=== PATIENT | male | born 2000 | race African-American/Black ===

== ENCOUNTER 2020-11-01 20:36 | Emergency (ER) | payer OTHER ==
[~2020-11-01 20:36] MED LIST: PROTONIX 40MG T40 MG PO; ZANTAC150 MG PO; ZOFRAN8 MG PO
[2020-11-02] MEDS ORDERED: CYCLOBENZAPRINE5 MG PO (00:15)
[2020-11-02] MEDS ORDERED: MOTRIN600 MG PO (00:15)
== END 2020-11-02 00:20 | disposition home or self-care (01) ==
LOC: FER 20:36
DX: M43.6 Torticollis (principal); F17.210 Nicotine dependence, cigarettes, uncomplicated
CPT/HCPCS: 72040; 72072; J7512

== ENCOUNTER 2021-01-02 13:11 | Emergency (ER) | payer OTHER ==
[~2021-01-02 13:11] MED LIST changes: +CYCLOBENZAPRINE5 MG PO; +MOTRIN600 MG PO
[2021-01-02] MEDS ORDERED: NORCO 5-325 TA1 EACH PO (18:26)
[2021-01-02] MEDS ORDERED: ACULAR5 M1 OS (18:26)
[2021-01-02] MEDS ORDERED: GARAMYCIN OPTH D5 ML OS (18:26)
== END 2021-01-02 18:44 | disposition home or self-care (01) ==
LOC: FER 13:11
DX: H10.022 Other mucopurulent conjunctivitis, left eye (principal); F17.210 Nicotine dependence, cigarettes, uncomplicated
CPT/HCPCS: 99283

== ENCOUNTER 2021-06-18 12:16 | Emergency (ER) | payer OTHER ==
[~2021-06-18 12:16] MED LIST changes: +ACULAR5 M1 OS; +GARAMYCIN OPTH D5 ML OS; +NORCO 5-325 TA1 EACH PO
[2021-06-18 13:14] LABS: BASOPHIL 0.3 % (0-2); EOSINOPHIL 0.5 % (0-5); HCT 45.3 % (42.0-52.0); HGB 15.1 g/dl (13.2-18.0); LYMPHOCYTE 28.2 % (15-48); MCH 28.7 pg (25.0-31.0); MCHC 33.3 g/dL (32.0-36.0); MONOCYTE 8.7 % (0-12); NRBC 0; PLT 289 K/uL (150-400); RBC 5.27 M/uL (4.70-6.00); RDW 13.4 % (11.5-14.0); WBC 7.6 K/uL (4.0-10.5)
[2021-06-18 13:16] LABS: BILIRUBIN NEGATIVE (NEGATIVE); BLOOD NEGATIVE Ery/uL (NEGATIVE); CLARITY CLEAR (CLEAR); COLOR YELLOW (YELLOW); GLUCOSE (U) NORMAL (NORMAL); LEUKOCYTES TRACE Leu/uL (NEGATIVE); NITRITE NEGATIVE (NEGATIVE); PROTEIN NEGATIVE (NEGATIVE); SPECIFIC GRAVITY <=1.005 (1.001-1.030); UROBILINOGEN 0.2 mg/dL (0.2-1.0)
[2021-06-18 13:36] LABS: BACTERIA 2+
[2021-06-18 13:46] LABS: ALBUMIN 4.2 g/dL (3.4-5.0); BILIRUBIN - TOTAL 1.4 mg/dL (0.2-1.0); BUN/CREAT RATIO (CALC) 7.3 RATIO; CREATININE 1.09 mg/dL (0.67-1.17); GLOBULIN (CALCULATION) 3.7 g/dL; POTASSIUM 3.6 mmol/L (3.5-5.1); TOTAL PROTEIN 7.9 g/dL (6.4-8.2)
== END 2021-06-18 14:54 | disposition left against medical advice (07) ==
LOC: FER 12:16
PROVIDERS: Internal Medicine
DX: Z53.21 Procedure and treatment not carried out due to patient leaving prior to being seen by health care provider (principal)
CPT/HCPCS: 36415; 80053; 81001; 82150; 83690; 85025